=== PATIENT | male | born 2000 | race African-American/Black ===

== ENCOUNTER 2019-04-30 00:38 | Emergency (ER) | payer SELFPAY ==
[~2019-04-30] VITALS: Ht 170.1 cm; Wt 63.5 kg
== END 2019-04-30 02:15 ==
LOC: ED 00:38
DX: T40.2X1A Poisoning by other opioids, accidental (unintentional), initial encounter (principal); R40.20 Unspecified coma; Z88.0 Allergy status to penicillin; Z88.6 Allergy status to analgesic agent; Y92.89 Other specified places as the place of occurrence of the external cause